=== PATIENT | female | born 1955 | race Caucasian/White ===

== ENCOUNTER → 2016-09-10 | Outpatient (CLI) | payer OTHER ==
[~2016-09-10] MED LIST: BENADRYL-DPS25 MG PO; COLACE-DPS100 MG PO; DAILY MULTIPLE1 EAC1 PO; FEOSOL-DPS325 MG PO; KENALOG CREAM 080 GM TP; LYSINE500 MG PO; NORCO 5-325 TA1 EACH PO; POTASSIUM GLUCO99 MG PO
== END | disposition home or self-care (01) ==
LOC: PTH.S 09:21
DX: Z01.818 Encounter for other preprocedural examination (principal)

== ENCOUNTER 2016-09-17 06:52 | Inpatient (IN) | payer OTHER ==
[~2016-09-17] VITALS: Ht 162.6 cm; Wt 77.5 kg
--- NOTE | ~2016-09-17 | WND ---
ADMIT: 09/17/2016 RM/LOC: 526 [facility] MR#: [id number] [facility]#: [id number] 26[address] [facility] [address] [place] [id number] [address] [place] [address] W[facility] Care Clinic SEX: F AGE: 61 : 1955 DATE OF VISIT: 09/17/2016 TIME OF VISIT: 15 minutes. CHIEF COMPLAINT: Rectal cancer status post colostomy placement on September 17, 2016. HISTORY OF PRESENT ILLNESS: Elie is a 61-year-old female, who is in the hospital status post colostomy placement for low anterior resection of a rectal cancer with end colostomy placed. Elie is currently on an epidural pain pump and is very groggy at this time. She reports extreme fatigue. She also is having some rectal pain and abdominal pain. She says "kid I hurt all over." She was recently diagnosed in March with rectal cancer and has underwent chemotherapy for 42 days. Her radiation is complete. She had 28 rounds of radiation. She currently has 7 more treatments of chemotherapy. Her oncologist is Dr. Carlson. MEDICATIONS: She currently just takes a thyroid medication. FAMILY MEDICAL HISTORY: Her mother was at age 76 secondary to breast cancer. Her father was at age 67 from heart attack. 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 She has a past medical history of smokeless tobacco for 40 years. She quit 2 years ago. She uses alcohol socially. She denies any caffeine or illicit drug use. She denies any preventative care such as mammograms or colonoscopies. OBJECTIVE: GENERAL: Alert, reveals a tired 61-year-old, who does answer questions appropriately; however, she answers a lot of the questions with her eyes closed. The stoma in the left mid quadrant looks nicely budded, red, and moist. There ADMIT: 09/17/2016 RM/LOC: 526 [facility] MR#: [id number] [address] [id number] ELIE RICE [address] [address] W[facility] Care Clinic SEX: F AGE: 61 : 1955 is no drainage noted in the bag. She has ostomy appliance intact. ASSESSMENT: Rectal cancer with low anterior resection and end colostomy placed. PLAN: Elie and I talked about it, and she wishes to wait to change the ostomy wafer and bag until Wednesday when she is not so sedated and in so much pain. She is fearful she will not be able to stay awake through the procedure. I did encourage her to empty her bag over the weekend as she could. Elie is amenable to plan of care. I would like to thank Dr. Crocker for allowing us to participate in Elie's care. Angelina Sevilla APRN/ she JOB #: [id number] CC: Alberto Crocker MD, Attending Physician Pop Pathak MD, Family Physician
[2016-09-23] MEDS ORDERED: COLACE-DPS100 MG PO (06:07)
[2016-09-23] MEDS ORDERED: DAILY MULTIPLE1 EAC1 PO (06:07)
[2016-09-23] MEDS ORDERED: FEOSOL-DPS325 MG PO (06:07)
[2016-09-23] MEDS ORDERED: POTASSIUM GLUCO99 MG PO (06:08)
[2016-09-23] MEDS ORDERED: LYSINE500 MG PO (06:08)
[2016-09-23] MEDS ORDERED: BENADRYL-DPS25 MG PO (06:08)
[2016-09-23] MEDS ORDERED: NORCO 5-325 TA1 EACH PO (06:09)
[2016-09-23] MEDS ORDERED: KENALOG CREAM 080 GM TP (06:09)
--- NOTE | 2016-09-23 10:10 | OR ---
ADMIT: 09/17/2016 RM/LOC: 526 [facility] MR#: [id number] [address] [id number] [address] [place] [address] Operative/Delivery Room Report SEX: F AGE: 61 : 1955 SURGERY DATE: 09/17/2016 SURGEON: Alberto Crocker MD PREOPERATIVE DIAGNOSIS: Low rectal cancer. POSTOPERATIVE DIAGNOSIS: Low rectal cancer. PROCEDURE: Abdominoperineal resection with end colostomy. MANUFACTURING MANAGEMENT ASSOCIATE: Poncho Contreras MD, whose assistance was necessary for tissue retraction and exposure during the procedure. ANESTHESIA: General. ESTIMATED BLOOD LOSS: 150 mL. DESCRIPTION OF PROCEDURE: The patient was taken to the operating room and placed supine on the operating room table. General anesthesia was established. The patient was placed in modified lithotomy position in Yellofin stirrups. The perineum and abdomen were prepped and draped in the standard surgical fashion. Vertical midline lower abdominal incision was carried through the skin and subcutaneous tissue to the fascia. The fascia and peritoneum were incised under visualization. Exploration of the abdomen revealed no evidence of distant metastases. The small bowel was packed with the self-retaining retractor in the upper abdomen. The distal sigmoid was skeletonized and divided with a CHELO blue 75 stapler. The mesentery of the rectum including the superior hemorrhoidal vessel was then divided with the EnSeal device down to the avascular plane in the presacral area. This was then dissected under direct visualization posteriorly. The lateral rectal stalks were taken down with cautery. The anterior peritoneal reflection was incised with cautery. Dissection proceeded distally circumferentially around the rectum to the pelvic floor musculature. Both ureters were identified and preserved. The uterine and vaginal tissue was also preserved. Once the tip of the coccyx could be felt posteriorly, the perineal dissection was performed. An ellipse of skin around the anal canal was excised with cautery to expose the underlying sphincter mechanism. These sphincters including the rectal robles were then carefully dissected into the fatty planes around these. Dissection proceeded to the level of the pelvic floor musculature. The anal coccygeal ligament was divided with cautery to allow entrance into the pelvic cavity. Once this was accomplished, the space at this level was created wide enough to allow passage of the rectum posteriorly. Additional lateral rectal stalks distally were taken down with cautery and the anterior margin was excised from the posterior vaginal wall. The rectum was completely excised intact with grossly negative margins around the tumor and sent as specimen. The pelvis was then irrigated with saline. There was no bleeding. The pelvic floor musculature was reapproximated with 0 Vicryl suture in two layer fashion. The skin edges of the perineal wound were then closed with 0 Ethibond suture. The distal sigmoid colon was brought through the colostomy ADMIT: 09/17/2016 RM/LOC: 526 [facility] MR#: [id number] [address] [place] [phone] ELIE RICE [address] [place] [address] Operative/Delivery Room Report SEX: F AGE: 61 : 1955 side that had been preoperatively marked in the left upper quadrant. A quarter-sized piece of skin and subcutaneous tissue was excised down to the fascia. The fascia was incised in a cruciate manner to allow extraction of the sigmoid at this level. There was no tension on the mesentery, and the margin of the sigmoid was viable upon bringing it to skin level. The 19-round channel drain was placed in the pelvis and exited via right lower quadrant incision. The fascial margins in the midline were then closed with #1 PDS suture. Skin edges and subcutaneous tissues were irrigated and approximated with melonie. The colostomy was then matured in a Essence fashion with 3-0 Vicryl suture. The dressings and colostomy appliance were placed. Sponge, needle, and instrument counts were correct at the end of the case. The patient tolerated the procedure well and transferred to the recovery area in stable condition. Alberto Crocker MD/ she JOB #: [id number] CC: Alberto Crocker, Attending Physician Pop Pathak, Family Physician
--- NOTE | 2016-10-05 07:23 | DS ---
ADMIT: 09/17/2016 RM/LOC: 526 [facility] MR#: [id number] [address] [facility] [address] [place] [phone] ELIE RICE [address] [place] [address] General Discharge Summary SEX: F AGE: 61 : 1955 ADMISSION DATE: 09/17/2016 DISCHARGE DATE: 09/22/2016 ADMITTING DIAGNOSIS: Low rectal cancer. 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 PROCEDURES: Abdominoperineal resection with end colostomy. HOSPITAL COURSE: The patient was an inpatient admit with routine med/surg orders. After surgery, the patient transferred to the floor without any complications. She had an epidural placed for pain control and was also given a morphine HAND SHOES SEWER. Overall the patient recovered well after surgery. She did, however, have an allergic response and developed hives to the adhesive used in our square offs prior to incision. This was treated with a topical steroid cream. Wound Care also followed the patient to help with ostomy education and cares. Her pain was controlled, and so she was weaned off her HAND SHOES SEWER and was tolerating oral pain medications. Epidural was pulled on 09/21/2016. The patient was tolerating an advanced diet and had good bowel function in her ostomy bag. Antunez catheter that was placed intraoperatively was pulled on 09/21/2016. Vitals remained stable throughout her hospital course and labs stabilized. The patient continued to recover well and discharged to home with Home Health Care on 09/22/2016. DISCHARGE INSTRUCTIONS: 1. Okay to shower. 2. [place] removed at follow-up appointment. 3. Follow up with Dr. Crocker in [place] September 29. 4. Follow up with Wound Care in 2 weeks. DISCHARGE MEDICATIONS: 1. Multivitamin daily. 2. Ferrous sulfate 325 mg daily. 3. Docusate sodium 100 mg daily. 4. Lysine daily. 5. Potassium gluconate 198 mg daily. 6. Benadryl 25 mg q.6 p.r.n. 7. Hydrocodone/acetaminophen 5/325, 1-2 tabs q.4-6 hours p.r.n. pain. 8. Kenalog cream 0.1% t.i.d. p.r.n. MADDISON Dixon / Alberto Crocker MD / giovanny JOB #: [id number] CC: Alberto Crocker MD, Attending Physician Pop Pathak MD, Family Physician
== END 2016-09-22 11:27 | disposition home health service (06) | DRG 331 ==
LOC: WOR 06:52 → 5MS 06:52
PROVIDERS: ADMIT Surgery
DX: C20 Malignant neoplasm of rectum (principal); L23.1 Allergic contact dermatitis due to adhesives